=== PATIENT | male | born 1965 | race Caucasian/White ===

== ENCOUNTER 2019-12-06 08:43 | Day surgery (SDC) | payer OTHER ==
[~2019-12-06] VITALS: Ht 177.8 cm; Wt 117.7 kg
[~2019-12-06 08:43] MED LIST: LEVO200T4 PO; LR 1,000 ML IV ONE; SERT50TA29 PO; WELLTAB40 PO
[2019-12-06] MEDS ORDERED: propofoL 200 MG/20 ML VIAL As Ordered ONE (13:00)
[2019-12-06 13:25] VITALS: BP 128/82
[2019-12-06] MEDS ORDERED: LR 1,000 ML IV SCH (14:00)
[2019-12-06] MEDS ORDERED: ONDANSETRON 4MG/2ML VIAL (J2405) IV PRN (14:00)
--- NOTE | 2019-12-06 23:22 | RO ---
DATE OF PROCEDURE: 12/05/2019 PREPROCEDURE DIAGNOSIS: Sleep apnea. POSTPROCEDURE DIAGNOSIS: Sleep apnea. OPERATIVE PROCEDURE: Sleep endoscopy. SURGEON: Silvino Bolden MD PUNCH PRESS FEEDER: ANESTHESIA: General. DESCRIPTION OF PROCEDURE: Under general anesthesia with the patient supine, the patient draped in the usual manner. The patient was put to sleep with propofol and I waited until he was fully asleep and he started to desaturate with apnea. I inserted the nasopharyngoscope through the nose on the right side into the nasopharynx. In the nasopharynx there was complete collapse of the nasopharynx both lateral anterior-posterior collapse. I advanced the nasopharyngoscope further. Again, in the oropharynx there was collapse anterior-posterior and lateral wall collapse in the area of the base of the tongue. The epiglottis was still away from the posterior pharyngeal wall but the airway had decreased to very small opening with collapse. The patient tolerated the procedure well. The patient was transferred to the recovery room in excellent condition.
== END 2019-12-06 13:30 | disposition home or self-care (01) ==
LOC: M SDC 08:43
PROVIDERS: ATTEND Otolaryngology
DX: G47.30 Sleep apnea, unspecified (principal); E03.9 Hypothyroidism, unspecified; E05.00 Thyrotoxicosis with diffuse goiter without thyrotoxic crisis or storm; Z79.899 Other long term (current) drug therapy; F43.10 Post-traumatic stress disorder, unspecified

== ENCOUNTER 2020-11-10 20:31 | Observation (INO) | payer OTHER ==
[~2020-11-10] VITALS: Ht 180.3 cm; Wt 117.5 kg
[~2020-11-10 20:31] MED LIST changes: -LR 1,000 ML IV ONE
[2020-11-10] MEDS ORDERED: NS 1,000 ML IV ONE (21:00)
[2020-11-10 21:09] LABS: BASO # 0.1 10^3/uL (0.0-0.2); BASO % 0.8 % (0.0-1.0); EOS # 0.1 10^3/uL (0.0-0.5); EOS % 1.4 % (0.0-3.0); HEMOGLOBIN 15.6 g/dl (13.5-17.5); LYMPH # 2.5 10^3/uL (1.5-5.0); LYMPH % 28.8 % (24.0-44.0); MEAN CORPUSCULAR HEMOGLOBIN 30.6 pg (27.0-33.0); MEAN CORPUSCULAR HGB CONC 34.7 g/dl (32.0-36.5); MEAN CORPUSCULAR VOLUME 88.4 fl (80.0-96.0); MONO # 0.8 10^3/uL (0.0-0.8); MONO % 9.2 % (0.0-5.0); NEUTROPHILS # 5.1 10^3/uL (1.5-8.5); PLATELET COUNT, AUTOMATED 239 10^3/uL (150-450); RED BLOOD COUNT 5.09 10^6/uL (4.30-6.10); WHITE BLOOD COUNT 8.6 10^3/uL (4.0-10.0)
[2020-11-10 21:19] LABS: INR 0.89; PROTHROMBIN TIME 12.2 SECONDS (12.5-14.3)
[2020-11-10 21:20] LABS: PARTIAL THROMBOPLASTIN TIME 25.4 SECONDS (24.2-38.5)
--- NOTE | 2020-11-10 21:58 | REPVR ---
PROCEDURE INFORMATION: Exam: XR Chest, 1 View Exam date and time: 11/10/2020 8:37 PM Age: 55 years old Clinical indication: Chest pain; Type not specified TECHNIQUE: Imaging protocol: XR of the chest Views: 1 view. COMPARISON: No relevant prior studies available. FINDINGS: Lungs: Unremarkable. No consolidation. Pleural space: Unremarkable. No pleural effusion. No pneumothorax. Heart/Mediastinum: Unremarkable. No cardiomegaly. Bones/joints: Unremarkable. IMPRESSION: No acute findings. Electronically signed by: Jordan Jurado On 11/10/2020 21:59:20 PM
[2020-11-10] MEDS ORDERED: ISOVUE-370 76% 100ML VIAL As Ordered ONE (22:08)
[2020-11-10 22:13] LABS: BLOOD UREA NITROGEN 19 MG/DL (7-18); CALCIUM LEVEL 8.8 MG/DL (8.5-10.1); CARBON DIOXIDE LEVEL 27 MEQ/L (21-32); CHLORIDE LEVEL 105 MEQ/L (98-107); CREATININE FOR GFR 1.05 MG/DL (0.70-1.30); ETHYL ALCOHOL (ETHANOL) < 0.003 % (0.000-0.010); FREE T4 0.79 NG/DL (0.76-1.46); GLOMERULAR FILTRATION RATE > 60.0 (>56); GLUCOSE, FASTING 101 MG/DL (70-100); SODIUM LEVEL 142 MEQ/L (136-145)
--- NOTE | 2020-11-10 22:29 | REPVR ---
PROCEDURE INFORMATION: Exam: CT Angiography Chest With Contrast Exam date and time: 11/10/2020 10:09 PM Age: 55 years old Clinical indication: Other: Palpitations; Additional info: Palpitations, tachycardia, TECHNIQUE: Imaging protocol: Computed tomographic angiography of the chest with intravenous contrast. 3D rendering (Not supervised by radiologist): MIP and/or 3D reconstructed images were created by the technologist. Radiation optimization: All CT scans at this facility use at least one of these dose optimization techniques: automated exposure control; mA and/or kV adjustment per patient size (includes targeted exams where dose is matched to clinical indication); or iterative reconstruction. Contrast material: ISOVUE 370; Contrast volume: 75 ml; Contrast route: INTRAVENOUS (IV); COMPARISON: CR PORTABLE CHEST X-RAY 11/10/2020 9:14 PM FINDINGS: Pulmonary arteries: There are no pulmonary emboli. Aorta: There is fusiform dilatation of the ascending thoracic aorta which measures 4.1 cm. maximally. There is no dissection or saccular component. Lungs: Unremarkable. No consolidation. No masses. Pleural space: Unremarkable. No pneumothorax. No pleural effusion. Heart: Unremarkable. No cardiomegaly. No pericardial effusion. Lymph nodes: Unremarkable. No enlarged lymph nodes. Bones/joints: Unremarkable. No acute fracture. Soft tissues: Unremarkable. IMPRESSION: 1. There is fusiform dilatation of the ascending thoracic aorta which measures 4.1 cm. maximally. There is no dissection or saccular component. 2. There are no pulmonary emboli. 3. No acute pulmonary parenchymal abnormalities. Electronically signed by: Jordan Jurado On 11/10/2020 22:29:44 PM
[2020-11-11] MEDS ORDERED: ASPI81TA26 PO (01:53)
[2020-11-11] MEDS ORDERED: ATOR80TA59 PO (01:53)
[2020-11-11] MEDS ORDERED: SERT-138 PO (02:11)
--- NOTE | 2020-11-11 02:19 | HPEPDOC ---
[facility] Medical History & Physical Date of Admission Nov 11, 2020 Date of Service: Nov 11, 2020 Attending Physician: MILAK MISHRA MD History and Physical CHIEF COMPLAINT: Palpitations HISTORY OF PRESENT ILLNESS: is a pleasant 55yo male with notable PMHx of HLD, hyperthyroidism s/p radioactive iodine therapy now hypothyroid, NATE not on home positive pressure device, sporadic outpatient elevated BPs w/ no current hypertensive meds, PTSD and depression, who presented to the ED on the evening of 11/10/2020 with the chief complaint of palpitations. He reports that he shoveled and snowblowing his driveway earlier in the afternoon for roughly 3 hours, came inside to his garage to warm up and was watching television when he began to experience a sensation as if his heart was "pounding outside of [his] chest." He subsequently went inside, ate, watched television, and drink a beer, but the symptoms persisted. He then laid down, took a shower, but continued to have the palpitations as well as associated feeling of "chest tightness," fatigue, and indigestion. He noticed his Smart watch recorded his heart rate between [id number] in a home blood pressure reading was "high." At this point, both the patient's and his stepson convinced him to present to the ED. He denied ever experiencing these aforementioned symptoms before. He also denied any recent change to his outpatient medication regimen, and reports no previous history of stable angina, unstable angina, and STEMI, or STEMI. Upon presentation to the ED around 8:30/9 PM, he was in sinus tachycardia (HR 110) with no other significant EKG findings. In addition, the palpitations had all but resolved. Initial eipqe-av-sitk troponin level was 0.01. The patient received normal saline IV fluid bolus and was subsequently monitored in the emergency department. A repeat vchvv-wu-[id number] troponin level increased to 0.13, at which time a second EKG showed normal sinus rhythm with no other significant abnormalities. Once again, the patient was relatively asymptomatic with stable vitals. At this time, the ED physician (Dr. Connell) contacted the on-call senior medical director (Dr. oGldman), who recommended the patient be admitted with an ob servation status in order to continue trending his troponins and monitoring him via telemetry. The patient is a full code and follows with a PCP on [place]. He also does follow with a psychiatrist on a monthly basis. PAST MEDICAL HISTORY: HLD on atorvastatin H/o hyperthyroidism s/p radioactive iodine therapy with resultant hypothyroidism on levothyroxine NATE with previous use of both CPAP and BiPAP, but has not used a home positive pressure machine when sleeping for over 5 years due to device inconvenience/poor mask fist H/o elevated outpatient BP readings with no definite diagnosis of HTN, not currently taking any hypertensive medications PTSD Depression H/o Bilateral LE compartment syndrome, s/p LLE fasciotomy PAST SURGICAL HISTORY: LLE fasciotomy for compartment syndrome Bilateral knee arthroscopic surgical procedures Right inguinal hernia repair SOCIAL HISTORY: (second marriage). Lives in [place], [place] with his and step-son. Has one biological child (son). 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 Former smoker- quit smoking 4 years ago after smoking one pack per day of cigarettes for 35 years; has also smoked cigars and chewed tobacco previously. Drinks alcohol approximately 810 drinks per week, with increased use during current pandemic. Denies any current or former illicit drug use. FAMILY HISTORY: Mother: , diabetes mellitus type 1 and from "diabetic complications" Father: , at age 62 due to amyotrophic lateral sclerosis Brother: Coronary artery disease status post stents ALLERGIES: Please see below. REVIEW OF SYSTEMS: CONSTITUTIONAL: Reports some moderate fatigue earlier on day of presentation. Denies recent unintentional change in weight, fever, chills, or night sweats HEENT: Reports being farsighted. Denies any recent significant change in visual acuity, blurry vision, double vision, eye pain, tinnitus, ear pain, rhinorrhea, dysphagia, or odynophagia CARDIOVASCULAR: Reports palpitations on day of presentation as described in HPI with some associated chest "tightness." Denies any sharp chest pain RESPIRATORY: Denies shortness of breath, cough, or pleuritic chest pain GASTROINTESTINAL: Reports some moderate indigestion on day of presentation. Denies nausea, vomiting, abdominal pain, diarrhea, constipation, or blood in stool GENITOURINARY: Denies dysuria or hematuria NEUROLOGICAL: Denies dizziness, lightheadedness, loss of consciousness, syncope, gait instability, numbness or paresthesias of extremities PSYCHIATRIC: Reports his baseline depression and PTSD is currently well controlled HEMATOLOGIC: Denies recent easy bleeding or easy bruising LYMPHATIC: Denies any new lumps or bumps HOME MEDICATIONS: Please see below. PHYSICAL EXAMINATION: VITAL SIGNS: Temperature 98.3, pulse, 92, respiratory rate 20, blood pressure 124/83, pulse oximetry, 85 % on room air. GENERAL: Pleasant overweight male lying upright in bed. No acute distress. Alert and oriented 3. HEENT: Normocephalic, atraumatic. Mild injection of sclera, right eye greater than left. No scleral icterus. PERRLA. No conjunctival pallor. Relatively moist mucous membranes with no pharyngeal erythema or exudate. NECK: Supple, wide. Trachea midline. No lymphadenopathy appreciated. CARDIOVASCULAR: Somewhat distant heart sounds with regular rate and regular rhythm. Normal S1, S2 with no appreciated rubs or murmurs. Adequate capillary refill. 2+ radial pulses bilaterally. LUNGS: Good respiratory effort with mild diminished tidal volume and no appreciate adventitious breath sounds. Symmetric chest expansion. Breathing room air with no accessory muscle use. Speaking full sentences. ABDOMEN: Soft, obese with no tenderness or distention. Hypoactive bowel sounds. No rigidity. No significant hepatosplenomegaly appreciated. MUSCULOSKELETAL: 5/5 muscle strength testing of upper and lower extremities bilaterally EXTREMITIES: No pitting edema of bilateral lower extremities. No signs of clubbing or cyanosis. No calf tenderness. 2+ radial pulses bilaterally NEUROLOGICAL: Awake, alert and oriented 3. No focal neurologic deficits appreciated. Non-dysarthric speech. PSYCHIATRIC: Pleasant mood. Affect appears appropriate. LABORATORY DATA: Please see below. IMAGING: Chest x-ray, 11/10/20 IMPRESSION: No acute findings. CT angiography, 11/10/20 IMPRESSION: 1. There is fusiform dilatation of the ascending thoracic aorta which measures 4.1 cm. maximally. There is no dissection or saccular component. 2. There are no pulmonary emboli. 3. No acute pulmonary parenchymal abnormalities. MICROBIOLOGY: Please see below. ASSESSMENT & PLAN: This is a 55yo male w/ notable h/o HLD, hypothyroidism s/p hyperthyroidism and radioactive iodine therapy, NATE not on home CPAP or BiPAP, depression and PTSD, who presented on 11/10/2020 with the chief complaint of chest palpitations and associated chest tightness, indigestion, and fatigue earlier in the day after coming indoors from shoveling and snowblowing. Two separate EKGs showed sinus tach and NSR with no other significant abnormalities and pt was relatively asymptomatic with resolution of earlier sxs. Repeat troponins were elevated and #Elevated repeat troponin in setting of earlier palpitations -initial trop 0.01 with elevation on repeat to 0.13 -based on px HR (150) and SBP (146), initial ALEJANDRO Risk Index Score was 31 = intermediate ALEJANDRO risk index -pt's sxs of palpitations and chest tightness spontaneously resolved in ED without nitrate administration -two EKGs in ED showed sinus tach and NSR with no other significant abnormalities -initial serum electrolytes wnl -ED spoke with cardiology (Dr. Goldman) who recommended patient be admitted as obs with tele and troponin trend -pt administered 325 mg ASA with home 81 mg ASA initially held -80 mg atorvastatin ordered with hold of home 40 mg dose -ECHO, repeat troponins, and repeat ekg ordered #Hyperlipidemia -home 40 mgf atorvastatin held in favor of 80 mg dose -cardiac risk panel ordered #Obesity, BMI 35 -complicates care and also puts at increase risk for ACS in setting of HLD -Hgb A1c ordered #Hypothyroidism s/p being hyperthyroid and receiving radioactive iodine therapy -TSH 9.6, fT4 0.79 -home levothyroxine continued #History of NATE not currently on home CPAP or BiPAP -continuous pulse ox with o2 titration orders #History of depression and PTSD -home sertraline and wellbutrin continued #History of outpatient elevated blood pressures -Since admission evaluation by hospitalist service just after midnight, pt has been steadily normotensive -2 g Na diet #DVT prophylaxis: sc lovenox Disposition: Admitted with observation status for continued telemetry monitoring and trending of troponins Vital Signs Vital Signs Date Time Temp Pulse Resp B/P (MAP) Pulse Ox O2 Delivery O2 Flow Rate FiO2 11/11/20 01:56 124/83 (97) 11/11/20 01:50 92 95 11/10/20 20:32 98.3 20 Room Air Laboratory Data Labs 24H Laboratory Tests 2 11/10/20 20:51: POC Troponin I (Misc) 0.01 11/10/20 20:53: Immature Granulocyte % (Auto) 0.8, Neutrophils (%) (Auto) 59.0, Lymphocytes (%) (Auto) 28.8, Monocytes (%) (Auto) 9.2H, Eosinophils (%) (Auto) 1.4, Basophils (%) (Auto) 0.8, Neutrophils # (Auto) 5.1, Lymphocytes # (Auto) 2.5, Monocytes # (Auto) 0.8, Eosinophils # (Auto) 0.1, Basophils # (Auto) 0.1, Nucleated Red Blood Cells % (auto) 0.0, Prothrombin Time 12.2, Prothromb Time International Ratio 0.89, Activated Partial Thromboplast Time 25.4, Anion Gap 10, Glomerular Filtration Rate > 60.0, Calcium Level 8.8, Magnesium Level 2.0, Thyroid Stimulating Hormone (TSH) 9.600H, Free Thyroxine 0.79, Ethyl Alcohol Level < 0.003 11/11/20 01:13: POC Troponin I (Misc) 0.13H CBC/BMP Laboratory Tests 11/10/20 20:53 Home Medications Scheduled Aspirin (Aspirin EC) 81 Mg Tablet.dr, 81 MG PO DAILY Atorvastatin Calcium (Atorvastatin Calcium) 80 Mg Tablet, 40 MG PO DAILY Bupropion HCl (Wellbutrin Xl) 300 Mg Tab.er.24h, 300 MG PO QPM Levothyroxine Sodium (Levothyroxine Sodium) 200 Mcg Tablet, 200 MCG PO DAILY Sertraline HCl (Sertraline HCl) 100 Mg Tablet, 100 MG PO QPM Allergies Coded Allergies: No Known Allergies (Unverified , 11/30/19) A-FIB/CHADSVASC A-FIB History Current/History of A-Fib/PAF?: No Current PO Anticoag Therapy: No GME ATTESTATION GME ATTESTATION My faculty preceptor for this patient encounter was physically present during the encounter and was fully available. All aspects of the patient interview, examination, medical decision making process, and medical care plan development were reviewed and approved by the faculty preceptor. The faculty preceptor is aware and concurs with the plan as stated in the body of this note and will attest to such by his/her cosignature. ATTENDING NOTE TIME OF SERVICE 355AM Mr. Justin is a 55 yr old w a hx of HTN, DLP, and Grave's disease who developed chest pain & palpitations while snow blowing his drive way. He will be admitted for evaluation of chest pain that may be due to ACS. #Chest pain / Possible NTSEMI (ALEJANDRO Score for NSTEMI = 2 points = low risk) #Chronic HTN #DLP #Grave's Dz Plan: telemetry / f/u serial trops, serial EKGs, Echo, lipids, A1C and consider official Cardio consult to discuss, AC, DAPT and stress test Rest per 's H&P MAURI MCNEAL D.O. Nov 11, 2020 02:19 MILKA MISHRA MD Nov 11, 2020 05:19
[2020-11-11] MEDS ORDERED: MAALOX 30 ML SUSP *UDC PO PRN (03:15)
[2020-11-11] MEDS ORDERED: ACETAMINOPHEN TAB 650MG DOSE (2X325MG) PO PRN (03:15)
[2020-11-11 04:37] LABS: RSV AMPLIFICATION NEGATIVE (NEGATIVE)
[2020-11-11] MEDS ORDERED: ASPIRIN 325 MG TAB PO ONE (05:45)
[2020-11-11] MEDS: LEVOTHYROXINE 100MCG TABLET (0.1MG) PO SCH (06:22)
[2020-11-11] MEDS: ATORVASTATIN 20 MG TAB PO SCH (08:07)
[2020-11-11] MEDS: ENOXAPARIN 40MG/0.4ML SYRINGE (J1650 PER 10MG) SC SCH (08:07)
--- NOTE | 2020-11-11 08:26 | ECGEPIP ---
[facility] - ED Test Date: 2020-11-10 Pat Name: JOVON GERARDO Department: Room: [place] [address] Gender: Male Video And Sound Recorder: : 1965 Requested By: SUDHEER Doung Order Number: [id number] Reading MD: Angel Marks Measurements Intervals [place] Rate: 107 P: 18 MS: 148 QRS: 48 QRSD: 91 T: 5 QT: 321 QTc: 430 Interpretive Statements SINUS TACHYCARDIA NONSPECIFIC T-WAVE ABNORMALITY NO PRIORS FOR COMPARISON Electronically Signed on 11-11-2020 8:26:02 EST by Angel Marks
--- NOTE | 2020-11-11 08:27 | ECGEPIP ---
[facility] - ED Test Date: 2020-11-11 Pat Name: JOVON GERARDO Department: Room: [place] [address] Gender: Male Manager Of Sustainability: : 1965 Requested By: SUDHEER Duong Order Number: [id number] Reading MD: Angel Marks Measurements Intervals [place] Rate: 86 P: 7 HI: 164 QRS: 46 QRSD: 92 T: 6 QT: 352 QTc: 421 Interpretive Statements SINUS RHYTHM NONSPECIFIC T WAVE ABNORMALITY(S) SIMILAR TO 11/10/20 Electronically Signed on 11-11-2020 8:27:19 EST by Angel Marks
[2020-11-11] MEDS ORDERED: ATORVASTATIN 20 MG TAB PO SCH (09:00)
[2020-11-11] MEDS ORDERED: ASPIRIN 81 MG ENTERIC TAB PO SCH (09:00)
[2020-11-11 09:58] LABS: HEMOGLOBIN A1c 5.4 %
[2020-11-11 14:00] VITALS: BP 128/91
[2020-11-11] MEDS ORDERED: buPROPion **XL** TABLET 150MG (WELLBUTRIN XL) PO SCH (21:00)
[2020-11-11] MEDS ORDERED: SERTRALINE 100 MG TAB PO SCH (21:00)
[2020-11-11 22:00] VITALS: BP 127/90
[2020-11-12] MEDS: LEVOTHYROXINE 100MCG TABLET (0.1MG) PO SCH (05:38)
[2020-11-12 06:00] VITALS: BP 100/63
[2020-11-12] MEDS: ENOXAPARIN 40MG/0.4ML SYRINGE (J1650 PER 10MG) SC SCH (09:06)
[2020-11-12] MEDS: ATORVASTATIN 20 MG TAB PO SCH (09:06)
--- NOTE | 2020-11-12 09:55 | IPNPDOC ---
Text Note Date of Service The patient was seen on 11/12/20. NOTE Subjective: Patient seen and examined this morning at bedside. Patient feels well and ready to go home. Denies any further palpitations denies chest pain or shortness of breath. No acute overnight events. I discussed with the patient the need for him to follow-up with his primary care doctor within next 5 days and that he will need an outpatient stress test to be arranged patient verbalizes understanding. Objective: Constitutional: Awake and alert, in no apparent distress ENT: Sclera are clear. Respiratory: Lungs CTA bilaterally. No respiratory distress. Cardiovascular: RRR S1 and S2 are normal, no murmur Gastrointestinal: Abdomen is soft, non distended, non tender, BS present. Musculoskeletal: No edema. Neurologic: No focal neurological deficit. Mental Status: A&O x3, normal affect Skin: Warm, dry Assessment/plan: 55-year-old male admitted to observation to rule out ACS due to elevated troponins and history of palpitations. At no point the patient have chest pain. # Palpitations elevated troponin: Rule out ACS. Trended trop which downtrended and normalized. Patient might have had a panic attack causing tach tachycardia which resulted in the elevated troponins. I do think the patient should have an outpatient stress test with his primary care doctor arranged. I instructed the patient to follow-up with his primary care doctor within 5 days of discharge which he agreed to. I also discussed with him the need for a stress test as he does have some risk factors for ACS. At the time of discharge patient was f eeling well denying any further palpitations and denying any chest pain at any point in time he also denies any shortness of breath. Feels well hydrated home. Telemetry reviewed. A Erika Hospitalist Ebenezer ARCE, I+O VSEbenezer I+O Vital Signs Date Time Temp Pulse Resp B/P (MAP) Pulse Ox O2 Delivery O2 Flow Rate FiO2 11/12/20 06:00 97.2 71 20 100/63 (75) 96 11/11/20 14:00 Room Air 11/11/20 09:41 2.0 I&O- Last 24 Hours up to 6 AM 11/12/20 06:00 Intake Total 2019 ml Output Total 1100 ml Balance 920 ml KIN DEL CASTILLO MD Nov 12, 2020 09:55
--- NOTE | 2020-11-13 06:29 | ECGEPIP ---
[facility] - ED Test Date: 2020-11-11 Pat Name: JOVON GERARDO Department: Room: [place] [address] Gender: Male Therapist Speech: kelly : 1965 Requested By: Angel Chicas Order Number: [id number] Reading MD: Angel Marks Measurements Intervals [place] Rate: 70 P: 15 MT: 211 QRS: 37 QRSD: 94 T: 16 QT: 403 QTc: 436 Interpretive Statements SINUS RHYTHM WITH FIRST DEGREE AV BLOCK NONSPECIFIC T WAVE ABNORMALITY(S) SIMILAR TO PRIOR ON SAME DATE Electronically Signed on 11-13-2020 6:29:08 EST by Angel Marks
--- NOTE | 2020-11-14 12:21 | ECHO ---
DATE OF PROCEDURE: 11/12/2020 Age: 55 Gender: Male Height: 178 cm Weight: 114 kg REFERRING PHYSICIAN: INDICATION: Chest pain. MEASUREMENTS: IVS 1.0 cm LV 4.9 cm LVPW 0.8 cm LA 4.2 cm Aorta 2.8 cm RV 3.4 cm IVC 1.2 cm Mitral E wave velocity 70 cm/s E prime septal velocity 6.1 cm/s E prime lateral velocity 7.6 cm/s FINDINGS: This study is of fair technical quality. Underlying sinus rhythm. Left ventricle is of normal size and has normal systolic function, estimated LVEF approximately 60% to 65%. I do not appreciate any segmental wall motion abnormalities. Right ventricle also appears to be normal size and systolic function. The left atrium is mildly enlarged. The right atrium appears grossly normal. The aortic valve is mildly sclerotic, but has three cusps and preserved mobility. Mitral, tricuspid, and pulmonic valves appear normal. No pericardial effusion is noted. Inferior vena cava is normal size. Aortic root is normal. The aortic arch and abdominal aorta were not well visualized. Doppler interrogation reveals no aortic stenosis or insufficiency. There is trace mitral and trace tricuspid insufficiency. Calculated pulmonary artery pressure is within normal limits. Pulmonic valve is functionally competent. Mitral inflow pattern and tissue Doppler imaging of the mitral annulus reveal grade 1 diastolic dysfunction. CONCLUSIONS: * Study is of acceptable technical quality, underlying sinus rhythm. * Normal LV size with preserved LV systolic function and grade 1 diastolic dysfunction. * No significant valvular disease. * Likely normal central venous pressure and normal pulmonary artery pressure. COMMENTS: No obvious findings to explain chest discomfort. MTDD
== END 2020-11-12 11:15 | disposition home or self-care (01) ==
LOC: M ED 20:31 → INTOOBSV 11-11 02:02 → M ED INP 11-11 02:02 → ENRESERV 11-11 11:14 → M MSPAV 11-11 12:05
PROVIDERS: ADMIT Internal Medicine; ATTEND Family Medicine
DX: R07.89 Other chest pain (principal); R00.2 Palpitations; R79.89 Other specified abnormal findings of blood chemistry; E78.49 Other hyperlipidemia; E03.9 Hypothyroidism, unspecified; I10 Essential (primary) hypertension; G47.33 Obstructive sleep apnea (adult) (pediatric); F43.10 Post-traumatic stress disorder, unspecified; F32.9 Major depressive disorder, single episode, unspecified; Z87.891 Personal history of nicotine dependence; E66.9 Obesity, unspecified; Z79.82 Long term (current) use of aspirin; Z79.899 Other long term (current) drug therapy
CPT/HCPCS: 36415; 71045; 71275; 80047; 80048; 80061; 83036; 83735; 84439; 84443; 84484; 85025; 85610; 85730; 87631; 93005; 93041; 93306; 94760; 96372; 96374; 99285; G0480; J1650; Q9967

== ENCOUNTER → 2021-07-23 | Outpatient (CLI) | payer OTHER ==
[~2021-07-23] MED LIST changes: +ASPI81TA26 PO; +ATOR80TA59 PO; +SERT-138 PO
--- NOTE | 2021-07-23 14:19 | REP ---
INDICATION: SCREENING FOR LUNG CA. COMPARISON: Comparison CT study November 10, 2020. TECHNIQUE: Dose reduction was performed utilizing CARE dose with automated adjustment of the kV and MAS according to patient size; iterative reconstruction, automated exposure control, as well as adaptive dose shielding. Helical scanning is acquired and 3 millimeter axial images are re-formatted at lung windows. FINDINGS: Preliminary digital business solutions director radiograph is unremarkable. Axial images demonstrate clear lung graves. No evidence of pulmonary mass or significant pulmonary nodule. No pleural or pericardial effusion is seen. Ascending aorta is dilated measuring 4.6 cm in anteroposterior dimension at the level of the right main pulmonary artery, previously 4.5 cm by my measurement. IMPRESSION: Lung RADS category 1 findings. Dilated ascending aorta noted incidentally as before. Repeat screening lung CT suggested in 1 year. <Electronically signed by Hubert Benton > 07/23/21 0845
== END ==
LOC: M RAD 12:58
PROVIDERS: ATTEND Nurse Practitioner Primary Care
DX: Z12.2 Encounter for screening for malignant neoplasm of respiratory organs (principal); Z13.83 Encounter for screening for respiratory disorder NEC; Z87.891 Personal history of nicotine dependence; I77.819 Aortic ectasia, unspecified site

== ENCOUNTER → 2021-08-02 | Outpatient (CLI) | payer OTHER ==
[~2021-08-02] MED LIST changes: +BUPR150T12 PO; +D31000TA2 PO; +VITMTA PO
== END ==
LOC: M LABSMTC 10:58
PROVIDERS: ATTEND Anesthesiology
DX: Z01.812 Encounter for preprocedural laboratory examination (principal); Z20.822 Contact with and (suspected) exposure to COVID-19

== ENCOUNTER → 2021-08-05 | Outpatient (CLI) | payer OTHER ==
[2021-08-05 16:39] LABS: BASO % 0.7 % (0.0-1.0); EOS # 0.1 10^3/uL (0.0-0.5); EOS % 2.1 % (0.0-3.0); HEMOGLOBIN 14.5 g/dl (13.5-17.5); LYMPH # 1.7 10^3/uL (1.5-5.0); LYMPH % 29.8 % (24.0-44.0); MEAN CORPUSCULAR HEMOGLOBIN 30.7 pg (27.0-33.0); MEAN CORPUSCULAR HGB CONC 34.5 g/dl (32.0-36.5); MEAN CORPUSCULAR VOLUME 88.8 fl (80.0-96.0); MONO # 0.6 10^3/uL (0.0-0.8); MONO % 9.8 % (2.0-8.0); NEUTROPHILS # 3.3 10^3/uL (1.5-8.5); NEUTROPHILS % 56.9 % (36.0-66.0); PLATELET COUNT, AUTOMATED 215 10^3/uL (150-450); RED BLOOD COUNT 4.73 10^6/uL (4.30-6.10); WHITE BLOOD COUNT 5.7 10^3/uL (4.0-10.0)
[2021-08-05 16:46] LABS: ALBUMIN 3.9 GM/DL (3.2-5.2); ALT/SGPT 36 U/L (12-78); BILIRUBIN,TOTAL 0.5 MG/DL (0.2-1.0); BLOOD UREA NITROGEN 10 MG/DL (7-18); CALCIUM LEVEL 9.1 MG/DL (8.5-10.1); CARBON DIOXIDE LEVEL 28 MEQ/L (21-32); CHLORIDE LEVEL 105 MEQ/L (98-107); CREATININE FOR GFR 0.76 MG/DL (0.70-1.30); GLOMERULAR FILTRATION RATE > 60.0 (>56); GLUCOSE, FASTING 86 MG/DL (70-100); POTASSIUM SERUM 3.8 MEQ/L (3.5-5.1); SODIUM LEVEL 139 MEQ/L (136-145); TOTAL PROTEIN 6.7 GM/DL (6.4-8.2)
[2021-08-05 16:48] LABS: PARTIAL THROMBOPLASTIN TIME 25.2 SECONDS (25.9-37.0); PROTHROMBIN TIME 13.6 SECONDS (12.7-14.5)
[2021-08-05 17:14] LABS: APPEARANCE, URINE CLEAR (CLEAR); BILIRUBIN, URINE AUTO NEGATIVE (NEGATIVE); BLOOD, URINE BLOOD NEGATIVE (NEGATIVE); COLOR, URINE YELLOW (YELLOW); GLUCOSE, URINE (UA) AUTO NEGATIVE (NEGATIVE); KETONE, URINE AUTO TRACE mg/dL (NEGATIVE); LEUKOCYTE ESTERASE, URINE AUTO NEGATIVE (NEGATIVE); NITRITE, URINE AUTO NEGATIVE (NEGATIVE); PROTEIN, URINE AUTO NEGATIVE (NEGATIVE); UROBILINOGEN, URINE AUTO 0.2 mg/dL (0.0-2.0)
[2021-08-05 17:17] LABS: BACTERIA, URINE AUTO NEGATIVE (NEGATIVE); RBC, URINE AUTO 0 /HPF (0-3); SQUAMOUS EPITHELIAL CELL UR AU 0 /HPF (0-6); WBC, URINE AUTO 0 /HPF (0-3)
== END ==
LOC: M LAB 15:38
PROVIDERS: ATTEND Nurse Practitioner Primary Care
DX: Z01.818 Encounter for other preprocedural examination (principal); I10 Essential (primary) hypertension; E78.5 Hyperlipidemia, unspecified; R73.01 Impaired fasting glucose; G47.33 Obstructive sleep apnea (adult) (pediatric)

== ENCOUNTER 2021-08-07 07:01 | Day surgery (SDC) | payer OTHER ==
[~2021-08-07] VITALS: Ht 180.3 cm; Wt 112.9 kg
[2021-08-07] VITALS (8 sets, daily range): BP systolic 126–150; BP diastolic 76–96
[~2021-08-07 07:01] MED LIST changes: +LR 1,000 ML IV ONE
[2021-08-07] MEDS ORDERED: BUPIVACAINE/EPIN 0.5% 30 ML VIAL As Ordered ONE ×2 (07:44→09:15)
[2021-08-07] MEDS ORDERED: LIDOCAINE W/EPINEPHRINE 1% 20ML VIAL As Ordered ONE ×2 (07:44→09:15)
[2021-08-07] MEDS ORDERED: METOCLOPRAMIDE INJ 10MG/2ML VIAL (J2765 PER 1) As Ordered ONE (07:48)
[2021-08-07] MEDS ORDERED: ONDANSETRON 4MG/2ML VIAL As Ordered ONE (07:48)
[2021-08-07] MEDS ORDERED: KETOROLAC 60MG 2ML VIAL As Ordered ONE (07:48)
[2021-08-07] MEDS ORDERED: ROCURONIUM BROMIDE 50 MG/5 ML VIAL As Ordered ONE (07:48)
[2021-08-07] MEDS ORDERED: LIDOCAINE 2% 100MG/5ML SDV (FOR ANES.) As Ordered ONE (07:48)
[2021-08-07] MEDS ORDERED: propofoL 200 MG/20 ML VIAL As Ordered ONE (07:48)
[2021-08-07] MEDS ORDERED: dexameTHASONE 4 MG/ML 1ML VIAL (J1100 PER 1MG) As Ordered ONE ×2 (07:48→10:02)
[2021-08-07] MEDS ORDERED: fentaNYL 100 MCG/2 ML INJECTION (J3010) As Ordered ONE (07:49)
[2021-08-07] MEDS ORDERED: MIDAZOLAM INJ 2MG/2ML VIAL (J2250 PER 1MG) As Ordered ONE (07:49)
[2021-08-07] MEDS ORDERED: SUGAMMADEX SODIUM 500 MG/5 ML VIAL (BRIDION) As Ordered ONE (08:54)
[2021-08-07] MEDS ORDERED: ONDANSETRON 4MG/2ML VIAL IV PRN (10:55)
[2021-08-07] MEDS ORDERED: LR 1,000 ML IV SCH ×2 (10:55)
[2021-08-07] MEDS ORDERED: METOCLOPRAMIDE INJ 10MG/2ML VIAL (J2765 PER 1) IV PRN (10:55)
[2021-08-07] MEDS ORDERED: PERCOCET 5MG/325MG TAB PO PRN (10:55)
[2021-08-07] MEDS ORDERED: fentaNYL 100 MCG/2 ML INJECTION (J3010) IV PRN (10:55)
[2021-08-07] MEDS ORDERED: NORCO, ANEXSIA 5/325MG TABLET (HYDROcodone/ACETAMINOPHEN) PO PRN (11:15)
--- NOTE | 2021-08-07 15:15 | RO ---
OPERATIVE NOTE DATE OF OPERATION: 08/07/2021 PREOPERATIVE DIAGNOSIS: Sleep apnea. POSTOPERATIVE DIAGNOSIS: Sleep apnea. PROCEDURE: Lateral pharyngoplasty and hyoid suspension. SURGEON: PHAM MERRILL MD ANESTHESIA: General. DESCRIPTION OF PROCEDURE: Under general anesthesia, the patient was prepped and draped in the usual manner. A Bovie with a mouth gag was inserted. The tonsillar area was infiltrated with Lidocaine and Epinephrine. I used cautery to dissect the tonsil free from its bed on both sides. The areas of bleeding were cauterized. Then, I made an incision in the inferior 1/3 of the posterior tonsil fossa and elevated muscle flap superiorly based using the cautery. There is very little bleeding. Once this was done then, I sutured the muscle superiorly by placing a stitch posterior to the upper posterior molar mucosa. That was done using a 3-0 Vicryl. The same procedure was performed on both sides. Any bleeding was controlled with cautery. Less than 10 ml of estimated blood loss. Once this was done, I did trim the inferior part of the uvula as it was elongated. I cut off the bottom 1 cm. There was no bleeding. The neck was then prepped and draped in the usual manner. I infiltrated the area of the incision after I had marked it out and it was half way between the hyoid bone and the thyroid cartilage. I divided skin and subcutaneous tissues and platysma. I dissected superiorly and inferiorly. I then dissected down identifying the superior part of the thyroid cartilage on both sides. I then skeletonized the hyoid bone superiorly dividing it from the muscles. I then placed a hole in the superior part of the thyroid cartilage on the left side and then a second hole, and then I passed a 2/0 Prolene through this in a horizontal mattress fashion. I then used a needle and went around the hyoid bone superiorly. The same procedure was performed on the right side. Once this was done, then this was tied down and this was to drop the hyoid bone down to the thyroid cartilage. The patient tolerated the procedure well. Minimal blood loss. A 1/4" Jhon drain was placed in the wound. The wound was closed with interrupted 4-0 Monocryl and 4-0 Prolene suture. The patient tolerated the procedure well. The wound was dressed. The patient was extubated and transferred to the Recovery Room in excellent condition.
[2021-08-07] MEDS ORDERED: MAGIC MOUTHWASH SUSPENSION BTL SS PRN (18:25)
[2021-08-07] MEDS ORDERED: MORPHINE 4 MG/ML 1ML VIAL/SYRINGE (J2270) IV ONE (18:25)
[2021-08-07] MEDS ORDERED: MORPHINE 4 MG/ML 1ML VIAL/SYRINGE (J2270) IV PRN (20:00)
[2021-08-08 02:00] VITALS: BP 145/89
[2021-08-08] MEDS: ANEXSIA, NORCO 7.5MG/325MG TABLET(HYDROCODONE/APAP) PO PRN ×3 (02:48→13:11)
[2021-08-08 06:00] VITALS: BP 98/60
[2021-08-08 10:00] VITALS: BP 152/100
[2021-08-08] MEDS ORDERED: HYDR-4571 PO (20:32)
[2021-08-08] MEDS ORDERED: HYDR-3713 PO (21:32)
[2021-08-08] MEDS ORDERED: ACET-897 PO (21:32)
[2021-08-08] MEDS ORDERED: IBUP1TAB6 PO (21:32)
== END 2021-08-08 13:35 | disposition home or self-care (01) ==
LOC: M SDC 07:01 → M MS5PR 11:50 → M SDC 08-08 13:35
PROVIDERS: ATTEND Otolaryngology
DX: G47.33 Obstructive sleep apnea (adult) (pediatric) (principal); E03.9 Hypothyroidism, unspecified; Z92.3 Personal history of irradiation; F43.10 Post-traumatic stress disorder, unspecified; F32.9 Major depressive disorder, single episode, unspecified; Z79.82 Long term (current) use of aspirin; Z79.899 Other long term (current) drug therapy

== ENCOUNTER 2021-08-08 20:11 | Inpatient (IN) | payer OTHER ==
[~2021-08-08] VITALS: Ht 185.4 cm; Wt 112.1 kg
[~2021-08-08 20:11] MED LIST changes: -LR 1,000 ML IV ONE
[2021-08-08] MEDS ORDERED: HYDR-4571 PO (20:32)
[2021-08-08] MEDS ORDERED: MORPHINE 2 MG/ML 1ML VIAL (J2270) IV ONE (21:15)
[2021-08-08] MEDS ORDERED: NS 1,000 ML IV SCH (21:30)
[2021-08-08] MEDS ORDERED: AMPICILLIN SOD/SULBACTAM SOD 3 GM in D5W MINI-BAG PLUS 100 ML IV ONE (21:30)
[2021-08-08] MEDS ORDERED: ACET-897 PO (21:32)
[2021-08-08] MEDS ORDERED: IBUP1TAB6 PO (21:32)
[2021-08-08] MEDS ORDERED: HYDR-3713 PO (21:32)
[2021-08-08] MEDS ORDERED: HOME MED LIST COMPLETE! XX SCH (21:35)
[2021-08-08] MEDS: NS 1,000 ML IV SCH (22:34)
--- NOTE | 2021-08-08 22:38 | HPEPDOC ---
[facility] Medical History & Physical Date of Admission Aug 08, 2021 Date of Service: Aug 08, 2021 History and Physical CHIEF COMPLAINT: Postoperative consultation - inability to clear secretions HISTORY OF PRESENT ILLNESS: 55-year-old male history of hypothyroidism, hyperlipidemia, NATE PTSD and depression who underwent tonsillectomy and lateral pharyngoplasty with Dr. Yuan ESQUIVEL yesterday and sent home with presents emergency department complaining of inability to clear secretions at home. States since his visit home he's been having to spit up his secretions it's been very bothersome and is expressing pain at the site of the operation. He denies any fevers or chills. He's been able to tolerate water and clear liquid diet. In the emergency department Dr. Michael ESQUIVEL visitor services information assistant was contacted who recommended admission with IV fluids, IV Unasyn, and suctioning as needed and advised that Dr. Bolden will be coming in to see him in the morning. Patient denies any chest pain or shortness of breath he denies any nausea or vomiting. Patient will be admitted for observation to the medical service for IV fluids antibiotics and evaluation by ENT in the morning. PAST MEDICAL/SURGICAL HISTORY: Hyperlipidemia Hyperthyroidism status post reactive iodine now he has hypothyroidism on levothyroxine NATE Labile blood pressure not on antihypertensives Depression PTSD History of bilateral lower extremity compartment syndrome status post left lower extremity fasciectomy Bilateral knee arthroscopic surgical procedures Right inguinal hernia repair SOCIAL HISTORY: Endorses alcohol use Denies tobacco use currently he is a former smoker Denies illicit drug use FAMILY HISTORY: Reviewed and none contributory to this admission ALLERGIES: Please see below. REVIEW OF SYSTEMS: 10 point review of systems complete all negative otherwise stated in HPI HOME MEDICATIONS: Please see below. PHYSICAL EXAMINATION: Constitutional: Awake and alert, in mild apparent distress appears frustrated and inability to clear secretions ENT: Sclera are clear. Mucosa is moist. Dressing in place over her lower jaw with drain in place. Respiratory: Lungs CTA bilaterally. No respiratory distress. No use of accessory muscles. Cardiovascular: RRR S1 and S2 are normal, no murmur Gastrointestinal: Abdomen is soft, non distended, non tender, BS present. Musculoskeletal: No lower extremity edema. Neurologic: No focal neurological deficit. Mental Status: A&O x3, normal affect Skin: No visible rashes LABORATORY DATA: See below. IMAGING: See chart MICROBIOLOGY: Please see below. ASSESSMENT/PLAN 55-year-old male history of hypothyroidism, hyperlipidemia, NATE PTSD and depression who underwent tonsillectomy and lateral pharyngoplasty with Dr. Yuan ESQUIVEL yesterday and sent home with presents emergency department complaining of inability to clear secretions at home. States since his visit home he's been having to spit up his secretions it's been very bothersome and is expressing pain at the site of the operation. He denies any fevers or chills. He's been able to tolerate water and clear liquid diet. In the emergency department Dr. Rodriguez ENT visitor services information assistant was contacted who recommended admission with IV fluids, IV Unasyn, and suctioning as needed and advised that Dr. Bolden will be coming in to see him in the morning. Patient denies any chest pain or shortness of breath he denies any nausea or vomiting. Patient will be admitted for observation to the medical service for IV fluids antibiotics and evaluation by ENT in the morning. # Post op complication: unable to clear secretions. Admit to med/surg for obs. Per recs form ENT Dr Rodriguez; IVFs, IV Unasyn, suctioning. Dr Bolden to see him in the morning. Pain control IV morphine. Rest per ENT. # Hyperlipidemia: Continue statin # Hypothyroidism: resume Synthroid. # Depression and PTSD: Continue home medications # History of labile blood pressure: Monitor. Pain control. # Obesity: BMI 33. Completes care. # DVT prophylaxis: Ambulating A Yousef Hospitalist Vital Signs Vital Signs Date Time Temp Pulse Resp B/P (MAP) Pulse Ox O2 Delivery O2 Flow Rate FiO2 08/08/21 20:11 100.1 97 22 160/85 (110) 93 Room Air Home Medications Scheduled Aspirin (Aspirin EC) 81 Mg Tablet., 81 MG PO DAILY Atorvastatin Calcium (Atorvastatin Calcium) 80 Mg Tablet, 40 MG PO DAILY Bupropion Hcl (Bupropion Xl) 150 Mg Tab.er.24h, 450 MG PO QPM Cholecalciferol (Vitamin D3) (Vitamin D3) 1,000 Unit Tablet, 1,000 UNITS PO DAILY Levothyroxine Sodium (Levothyroxine Sodium) 200 Mcg Tablet, 200 MCG PO DAILY Multivitamins (Thera M Plus Tablet) 1 Each Tablet, 1 TAB PO DAILY Sertraline HCl (Sertraline HCl) 50 Mg Tablet, 100 MG PO DAILY Scheduled PRN Acetaminophen (Tylenol Extra Strength) 500 Mg Tablet, 1,000 MG PO Q6H PRN for MILD PAIN (PS 1-4) Hydrocodone/Acetaminophen (Hydrocodone-Acetamin 5-325 mg) 1 Each Tablet, 1 TAB PO Q6H PRN for MODERATE/SEVERE PAIN (PS 5-10) Ibuprofen (Ibuprofen) 600 Mg Tablet, 600 MG PO Q6H PRN for MILD PAIN (PS 1-4) Allergies Coded Allergies: No Known Allergies (Unverified , 07/25/21) KIN DEL CASTILLO MD Aug 08, 2021 22:38
[2021-08-08] MEDS ORDERED: ACETAMINOPHEN 500 MG TAB PO PRN (22:40)
[2021-08-09] MEDS ORDERED: dexameTHASONE 20MG/5ML VIAL (J1100 PER 1MG) IV ONE (00:45)
[2021-08-09 01:15] LABS: RSV AMPLIFICATION NEGATIVE (NEGATIVE)
[2021-08-09 02:52] VITALS: BP 136/80
[2021-08-09] MEDS: MORPHINE 4 MG/ML 1ML VIAL/SYRINGE (J2270) IV PRN ×4 (04:58→20:24)
[2021-08-09] MEDS: AMPICILLIN SOD/SULBACTAM SOD 3 GM in D5W MINI-BAG PLUS 100 ML IV SCH ×4 (05:00→20:24)
[2021-08-09 05:26] LABS: HEMATOCRIT 43.8 % (42.0-52.0); HEMOGLOBIN 14.5 g/dl (13.5-17.5); MEAN CORPUSCULAR HEMOGLOBIN 30.2 pg (27.0-33.0); MEAN CORPUSCULAR HGB CONC 33.1 g/dl (32.0-36.5); MEAN CORPUSCULAR VOLUME 91.3 fl (80.0-96.0); PLATELET COUNT, AUTOMATED 199 10^3/uL (150-450); WHITE BLOOD COUNT 7.5 10^3/uL (4.0-10.0)
[2021-08-09 05:49] LABS: ALT/SGPT 27 U/L (12-78); BILIRUBIN,TOTAL 0.7 MG/DL (0.2-1.0); BLOOD UREA NITROGEN 15 MG/DL (7-18); CARBON DIOXIDE LEVEL 26 MEQ/L (21-32); CHLORIDE LEVEL 102 MEQ/L (98-107); CREATININE FOR GFR 0.83 MG/DL (0.70-1.30); GLOMERULAR FILTRATION RATE > 60.0 (>56); GLUCOSE, FASTING 122 MG/DL (70-100); MAGNESIUM LEVEL 2.1 MG/DL (1.8-2.4); SODIUM LEVEL 140 MEQ/L (136-145)
[2021-08-09] MEDS: NS 1,000 ML IV SCH (06:16)
[2021-08-09] MEDS: ASPIRIN 81MG ENTERIC TABLET PO SCH (09:00)
[2021-08-09] MEDS: LEVOTHYROXINE 100MCG TABLET (0.1MG) PO SCH (09:00)
[2021-08-09] MEDS: SERTRALINE HCL 50 MG TAB PO SCH (09:00)
[2021-08-09] MEDS: ATORVASTATIN 20 MG TAB PO SCH (09:00)
[2021-08-09] MEDS: dexameTHASONE 4 MG/ML 1ML VIAL (J1100 PER 1MG) IV SCH ×2 (13:14→20:23)
[2021-08-09 14:00] VITALS: BP 136/82
--- NOTE | 2021-08-09 17:21 | IPNPDOC ---
Text Note Date of Service The patient was seen on 08/09/21. NOTE Subjective: Patient is a 55-year-old male who presented to the emergency depa rtment last night with a chief complaint of inability to clear secretions after having a lateral frenuloplasty performed by Dr. Bolden on 08/07/2021. Patient has been getting better throughout the day however, he is still not able to eat and drink a whole lot. Patient is having better time clearing secretions at this time. Patient denies any other pain or other complaints. Review of systems: General: Patient denies fevers HEENT: Patient denies headaches Cardiovascular: Patient denies chest pain Respiratory: Patient denies shortness of breath, cough GI: Patient denies abdominal pain, nausea, vomiting, diarrhea : Patient denies increased frequency or pain with urination Extremities: Patient denies swelling or pain in extremities Neurological: Patient denies numbness or tingling in legs Physical exam: Vitals: See below General: Alert and oriented male patient who was walking around the room when I walked in. Patient not appear to be in any acute distress. HEENT: Normocephalic, atraumatic, moist mucous membranes. Neck: Bandages placed over the anterior aspect of the neck with a surgical drain placed in the right side of the neck. Cardiac: Regular rate and rhythm, no murmurs, normal S1, normal S2 Pulm: Clear to auscultation bilaterally. No wheezes, rhonchi, rales Abd: Nondistended, nontender to palpation, normal bowel sounds Ext: No edema bilateral lower extremities Labs: See below Imaging: No new imaging has been performed. Assessment/plan: 55-year-old male who underwent lateral pharyngeal plasty and hyoid suspension on 08/07/2021 who presented back to the hospital after being unable to manage his secretions. 1. Postop complication. Patient was unable to clear secretions. Patient will continue with IV Unasyn which can be switched to oral Augmentin once patient goes home. I spoke with Dr. Rush of ENT who is covering for Dr. Bolden who stated that the patient should receive 2 more doses of IV Decadron which she will receive tonight and early tomorrow morning and if doing well can be discharged home tomorrow. Because patient will now be here for 2 midnights, patient's admission order has been changed to inpatient. 2. Hyperlipidemia. Continue statin therapy. 3. Hypothyroidism. Continue Synthroid. 4. Depression and PTSD. Continue home medications. 5. History of labile blood pressure. We will continue to monitor. 6. Obesity class I, complicating the patient's care. DVT Prophylaxis: Ambulation Disposition: Pending improvement in the patient's ability to handle secretions. Most likely discharge tomorrow morning. VS,Fishbone, I+O VS, Fishbone, I+O Laboratory Tests 08/09/21 05:04 Vital Signs Date Time Temp Pulse Resp B/P (MAP) Pulse Ox O2 Delivery O2 Flow Rate FiO2 08/09/21 14:00 98.8 83 20 136/82 (100) 92 08/09/21 05:08 Room Air 08/09/21 02:15 1.0 I&O- Last 24 Hours up to 6 AM 08/09/21 06:00 Intake Total 840 ml Balance 840 ml MYKEL VAUGHN DO Aug 09, 2021 17:21
[2021-08-09] MEDS ORDERED: buPROPion **XL** TABLET 150MG (WELLBUTRIN XL) PO SCH (21:00)
[2021-08-09 21:56] VITALS: BP 126/82
[2021-08-10] MEDS: dexameTHASONE 4 MG/ML 1ML VIAL (J1100 PER 1MG) IV SCH (05:15)
[2021-08-10] MEDS: MORPHINE 4 MG/ML 1ML VIAL/SYRINGE (J2270) IV PRN ×2 (05:15→09:04)
[2021-08-10] MEDS: AMPICILLIN SOD/SULBACTAM SOD 3 GM in D5W MINI-BAG PLUS 100 ML IV SCH ×2 (05:15→09:00)
[2021-08-10 06:00] VITALS: BP 144/80
[2021-08-10] MEDS: ATORVASTATIN 20 MG TAB PO SCH (08:53)
[2021-08-10] MEDS: ASPIRIN 81MG ENTERIC TABLET PO SCH (08:53)
[2021-08-10] MEDS: SERTRALINE HCL 50 MG TAB PO SCH (08:53)
[2021-08-10] MEDS: LEVOTHYROXINE 100MCG TABLET (0.1MG) PO SCH (08:53)
--- NOTE | 2021-08-10 16:13 | HPE ---
HISTORY AND PHYSICAL DATE OF ADMISSION: 08/08/2021 This is a 55-year-old man who is lateral pharyngoplasty and hyoid suspension done on 08/07/[address] Bolden. He was readmitted to the hospital last evening due to issue with swallowing and pain control. Since that time patient has received one dose of Decadron 6 mg with improvement of his symptoms; however, he is still having some trouble with pain and some swallowing issues. He has been able to tolerate oral intake throughout the day today at this time. PHYSICAL EXAMINATION: Patient appears in no acute distress. [place] drain noted coming off from the right upper neck. Palpable thyroid cartilage and cricoid cartilage. Trachea midline. No palpable fluctuance ini the submandibular triangle area. Patient exhibited no evidence of trismus. Floor of mouth not elevated. Tongue fully mobile. Oral cavity moist with secretions. IMPRESSION: A 55-year-old man, postoperative day #2, lateral pharyngoplasty and hyoid suspension. PLAN: Patient will receive additional intravenous (IV) Decadron. I am in agreement with patient receiving Unasyn. Patient has made significant improvement of his oral intake throughout the day today. At this time if the patient continues to have improvement with his pain management and swallowing, he will be tentative for discharge tomorrow by the hospitalist, and he can be discharged with oral Augmentin. He will have his neck dressing changed twice a day. He will followup with Dr. Bolden sometime next week. The above instructions have been communicated to the hospitalist, Dr. Marco Appiah. He is made aware and will pass on the message to his colleague.
--- NOTE | 2021-08-10 16:37 | DS.PDOC ---
Discharge Summary General Date of Admission Aug 09, 2021 at 17:16 Date of Discharge 08/10/21 Discharge Summary PROCEDURES PERFORMED DURING STAY: [None]. ADMITTING DIAGNOSES: Status post lateral pharyngeal plasty and hyoid suspension Dysphagia Hyperlipidemia Hypothyroidism Depression and PTSD Obesity class I DISCHARGE DIAGNOSES: Status post lateral pharyngeal plasty and hyoid suspension Dysphagia Hyperlipidemia Hypothyroidism Depression and PTSD Obesity class I COMPLICATIONS/CHIEF COMPLAINT: Post-Operative State. HISTORY OF PRESENT ILLNESS: This is a 55-year-old man who is lateral pharyngoplasty and hyoid suspension done on 08/07/[address] Bolden. He was readmitted to the hospital last evening due to issue with swallowing and pain control. Since that time patient has received one dose of Decadron 6 mg with improvement of his symptoms; however, he is still having some trouble with pain and some swallowing issues. He has been able to tolerate oral intake throughout the day today at this time. HOSPITAL COURSE: During the hospital stay patient received 2 doses of Decadron recommended by ENT. In the morning patient stated that he is swallowing markedly improved and he was able to eat without any difficulties. Patient will be discharged with close follow-up with ENT DISCHARGE MEDICATIONS: Please see below. ALLERGIES: Please see below. PHYSICAL EXAMINATION ON DISCHARGE: VITAL SIGNS: Please see below. Constitutional: Awake and alert, in mild apparent distress appears frustrated and inability to clear secretions ENT: Sclera are clear. Mucosa is moist. Dressing in place over her lower jaw with drain in place. Respiratory: Lungs CTA bilaterally. No respiratory distress. No use of accessory muscles. Cardiovascular: RRR S1 and S2 are normal, no murmur Gastrointestinal: Abdomen is soft, non distended, non tender, BS present. Musculoskeletal: No lower extremity edema. Neurologic: No focal neurological deficit. Mental Status: A&O x3, normal affect Skin: No visible rashes LABORATORY DATA: Please see below. PROGNOSIS: Fair ACTIVITY: [As tolerated]. DIET: Soft mechanical diet for next 3 days DISPOSITION: 01 Home, Self-Care. ITEMS TO FOLLOWUP ON ON OUTPATIENT: Follow-up with ENT DISCHARGE CONDITION: [Stable]. TIME SPENT ON DISCHARGE: 30minutes. Vital Signs/I&Os Vital Signs Date Time Temp Pulse Resp B/P (MAP) Pulse Ox O2 Delivery O2 Flow Rate FiO2 08/10/21 09:14 16 08/10/21 06:00 98.0 70 144/80 (101) 95 Room Air 08/09/21 02:15 1.0 I&O- Last 24 Hours up to 6 AM 08/10/21 06:00 Intake Total 1480 ml Balance 1480 ml Discharge Medications Scheduled Aspirin (Aspirin EC) 81 Mg Tablet.dr, 81 MG PO DAILY, (Reported) Atorvastatin Calcium (Atorvastatin Calcium) 80 Mg Tablet, 40 MG PO DAILY, (Reported) Bupropion Hcl (Bupropion Xl) 150 Mg Tab.er.24h, 450 MG PO QPM, (Reported) Cholecalciferol (Vitamin D3) (Vitamin D3) 1,000 Unit Tablet, 1,000 UNITS PO DAILY, (Reported) Levothyroxine Sodium (Levothyroxine Sodium) 200 Mcg Tablet, 200 MCG PO DAILY, (Reported) Multivitamins (Thera M Plus Tablet) 1 Each Tablet, 1 TAB PO DAILY, (Reported) Sertraline HCl (Sertraline HCl) 50 Mg Tablet, 100 MG PO DAILY, (Reported) Scheduled PRN Acetaminophen (Tylenol Extra Strength) 500 Mg Tablet, 1,000 MG PO Q6H PRN for MILD PAIN (PS 1-4), (Reported) Hydrocodone/Acetaminophen (Hydrocodone-Acetamin 5-325 mg) 1 Each Tablet, 1 TAB PO Q6H PRN for MODERATE/SEVERE PAIN (PS 5-10), (Reported) Ibuprofen (Ibuprofen) 600 Mg Tablet, 600 MG PO Q6H PRN for MILD PAIN (PS 1-4), (Reported) Allergies Coded Allergies: No Known Allergies (Unverified , 07/25/21) CESAR HAYES DO Aug 10, 2021 16:37
== END 2021-08-10 13:05 | disposition home or self-care (01) | DRG 395 ==
LOC: M ED 20:11 → M ED INP 20:12 → ENRESERV 08-09 01:32 → M MS5PR 08-09 02:42 → OBSVTOIN 08-09 17:16
PROVIDERS: ADMIT Family Medicine; ATTEND Internal Medicine
DX: K91.89 Other postprocedural complications and disorders of digestive system (principal); R13.10 Dysphagia, unspecified; E78.5 Hyperlipidemia, unspecified; E03.9 Hypothyroidism, unspecified; E66.9 Obesity, unspecified; F43.10 Post-traumatic stress disorder, unspecified; F32.9 Major depressive disorder, single episode, unspecified; Z79.82 Long term (current) use of aspirin; Z79.899 Other long term (current) drug therapy; G47.33 Obstructive sleep apnea (adult) (pediatric); Z87.891 Personal history of nicotine dependence; Z68.33 Body mass index [BMI] 33.0-33.9, adult

== ENCOUNTER → 2021-11-30 | Outpatient (CLI) | payer OTHER ==
[~2021-11-30] MED LIST changes: +ACET-897 PO; +HYDR-3713 PO; +HYDR-4571 PO; +IBUP1TAB6 PO; +ZOLO100T PO
== END ==
LOC: M LABSMTC 09:52
PROVIDERS: ATTEND Anesthesiology
DX: Z01.812 Encounter for preprocedural laboratory examination (principal); Z20.822 Contact with and (suspected) exposure to COVID-19

== ENCOUNTER → 2022-01-08 | Outpatient (CLI) | payer OTHER ==
[~2022-01-08] MED LIST changes: +OMEG100011 PO
== END ==
LOC: M LABSMTC 09:00
PROVIDERS: ATTEND Anesthesiology
DX: Z01.812 Encounter for preprocedural laboratory examination (principal); Z20.822 Contact with and (suspected) exposure to COVID-19

== ENCOUNTER 2022-01-13 08:23 | Day surgery (SDC) | payer OTHER ==
[~2022-01-13] VITALS: Ht 175.3 cm; Wt 112.9 kg
[~2022-01-13 08:23] MED LIST changes: -D31000TA2 PO; +LIDOCAINE 2% 100MG/5ML SDV (FOR ANES.) As Ordered ONE; +NS 1,000 ML IV ONE; +VITA100093 PO; +propofoL 200 MG/20 ML VIAL As Ordered ONE
[2022-01-13 10:18] VITALS: BP 124/72
== END 2022-01-13 10:25 | disposition home or self-care (01) ==
LOC: M OPP 08:23
PROVIDERS: ATTEND Internal Medicine Gastroenterology
DX: Z12.11 Encounter for screening for malignant neoplasm of colon (principal); K63.5 Polyp of colon; K57.30 Diverticulosis of large intestine without perforation or abscess without bleeding; K64.8 Other hemorrhoids; Z79.82 Long term (current) use of aspirin; Z79.899 Other long term (current) drug therapy; Z86.39 Personal history of other endocrine, nutritional and metabolic disease; Z92.3 Personal history of irradiation; Z87.891 Personal history of nicotine dependence

== ENCOUNTER → 2022-11-20 | Outpatient (CLI) | payer OTHER ==
[~2022-11-20] MED LIST changes: +ISOVUE-370 76% 100ML VIAL As Ordered ONE; -LIDOCAINE 2% 100MG/5ML SDV (FOR ANES.) As Ordered ONE; -NS 1,000 ML IV ONE; -propofoL 200 MG/20 ML VIAL As Ordered ONE
== END ==
LOC: M RAD 10:15
PROVIDERS: ATTEND Nurse Practitioner
DX: I71.20 Thoracic aortic aneurysm, without rupture, unspecified (principal); K76.0 Fatty (change of) liver, not elsewhere classified
CPT/HCPCS: 71260; Q9967

== ENCOUNTER → 2023-05-25 | Outpatient (CLI) | payer OTHER ==
[~2023-05-25] MED LIST changes: -ISOVUE-370 76% 100ML VIAL As Ordered ONE
== END ==
LOC: M SLEEP 20:00
PROVIDERS: ATTEND Physician Assistant
DX: G47.33 Obstructive sleep apnea (adult) (pediatric) (principal)

== ENCOUNTER → 2023-12-03 | Outpatient (CLI) | payer OTHER | LOC: M RAD 14:00 | PROVIDERS: ATTEND Nurse Practitioner Family | DX: Z12.2 Encounter for screening for malignant neoplasm of respiratory organs (principal); Z87.891 Personal history of nicotine dependence ==